=== PATIENT | male | born 1975 | race Caucasian/White ===

== ENCOUNTER 2019-06-30 01:08 | Observation (INO) ==
[2019-06-30] MEDS ORDERED: Naloxone 0.4 MG/ML INJ IVP PRN ×2 (04:11→04:30)
[2019-06-30] MEDS ORDERED: Ondansetron ODT 4 MG TAB.RAPDIS SL PRN (04:11)
[2019-06-30] MEDS ORDERED: Nicotine 2 MG GUM BC PRN (04:11)
[2019-06-30] MEDS ORDERED: *HR* Heparin 5,000 UNIT/ML VIAL IVP ONE ×2 (04:11→04:32)
[2019-06-30] MEDS ORDERED: *HR* Heparin 5,000 UNIT/ML VIAL IVP PRN ×4 (04:11→04:32)
[2019-06-30] MEDS ORDERED: Heparin 25,000 UNIT/250 ML D5W 25,000 UNIT/250 ML IV.SOLN IVC SCH ×2 (04:15→04:45)
[2019-06-30] MEDS ORDERED: 0.9 % Sodium Chloride 1,000 ML IVC SCH (04:15)
[2019-06-30] MEDS ORDERED: hydrOXYzine pamoate 25 MG CAPSULE PO PRN (04:49)
[2019-06-30 04:52] LABS: Basophils # 0.1 K/mcL (0.0-0.2); Basophils % 0.5 %; Eosinophils # 0.2 K/mcL (0.0-0.6); Eosinophils % 2.3 %; Hematocrit 48.2 % (37.5-50.1); Hemoglobin 15.7 g/dL (12.9-16.9); Immature Granulocytes % 0.4 % (0-4); Lymphocytes % 20.8 %; Mean Corpuscular HGB Conc 32.6 g/dL (31.6-35.5); Mean Corpuscular Hemoglobin 31.2 pg (28.0-33.3); Mean Corpuscular Volume 95.6 fL (83.0-100.0); Mean Platelet Volume 10.8 fL (9.4-12.4); Monocytes # 1.3 K/mcL (0.0-1.3); Neutrophils # 5.9 K/mcL (1.6-8.9); Platelet Count 189 K/mcL (140-400); Red Blood Count 5.04 M/mcL (4.19-5.50); Red Cell Distribution Width 13.2 % (11.5-14.5); White Blood Count 9.5 K/mcL (4.3-11.1)
[2019-06-30 04:57] LABS: Heparin anti-factor XA UFH 0.13 IU/mL (0.30-0.70); INR 1.4; Prothrombin Time 16.3 Seconds (9.4-12.1)
[2019-06-30 05:14] LABS: Alanine Aminotransferase 57 Units/L (7-52); Albumin/Globulin Ratio 1.3 (1.1-2.2); Alkaline Phosphatase 65 Units/L (34-104); Aspartate Amino Transferase 53 Units/L (13-39); BUN/Creatinine Ratio 16 (6-26); Bilirubin,Total 0.9 mg/dL (0.3-1.0); Blood Urea Nitrogen 16 mg/dL (6-20); Calcium 9.1 mg/dL (8.6-10.3); Carbon Dioxide 28 mEq/L (23-29); Chloride 100 mEq/L (98-107); Chol/HDL Ratio 5.7 (0-4.9); Cholesterol 172 mg/dL (< 200); Globulin 3.2 g/dL (2.4-3.5); Glucose 95 mg/dL (70-105); HDL Cholesterol 30 mg/dL (40-59); LDL Cholesterol,Calculated 114 mg/dL (0-99); Magnesium 2.1 mg/dL (1.6-2.6); Osmolality,Calculated 283 (280-300); Phosphorous 3.7 mg/dL (2.7-4.5); Potassium 3.8 mEq/L (3.5-5.1); Sodium 136 mEq/L (136-145); Total Protein 7.2 g/dL (6.4-8.9); Triglycerides 138 mg/dL (< 150); eGFR For African Americans > 60 (> 60); eGFR For Non-African Americans > 60 (> 60)
[2019-06-30 07:51] LABS: Estimated Average Glucose 128 mg/dl
[2019-06-30 08:46] LABS: Bilirubin,Urine Small (Negative); Blood,Urine Negative (Negative); Clarity,Urine Clear (Clear); Color,Urine Dark Yellow (Yellow); Glucose,Urine (UA) Normal (Normal); Ketones,Urine Negative (Negative); Leukocyte Esterase,Urine Negative (Negative); Nitrite,Urine Negative (Negative); PH,Urine 5.5 pH Units (5.0-8.0); Protein,Urine Negative (Neg-Trace); Specific Gravity,Urine > 1.030 (1.010-1.025); Urobilinogen,Urine Normal (Normal)
[2019-06-30] MEDS: Nicotine 14 MG PATCH.TD24 TD SCH (08:46)
[2019-06-30] MEDS: Apixaban 5 MG TABLET PO SCH ×2 (12:40→21:25)
[2019-07-01 08:13] VITALS: BP 123/70
[2019-07-01] MEDS ORDERED: Fenofibrate 54 MG TABLET PO SCH (09:00)
[2019-07-01] MEDS: Nicotine 14 MG PATCH.TD24 TD SCH (10:08)
[2019-07-01] MEDS: Apixaban 5 MG TABLET PO SCH (10:17)
[2019-07-07] MEDS ORDERED: Apixaban 5 MG TABLET PO SCH (09:00)
== END 2019-07-01 14:16 | disposition home or self-care (01) ==
LOC: 2ANU → SUATTDRO 03:18
PROVIDERS: ADMIT Internal Medicine; ATTEND Internal Medicine